=== PATIENT | male | born 1995 | race Caucasian/White ===

== ENCOUNTER 2019-07-04 05:16 | Emergency (ER) | payer OTHER, BC ==
[~2019-07-04] VITALS: Ht 172.7 cm; Wt 104.3 kg
[~2019-07-04 05:16] MED LIST: ASPI81CH; CEPH500 PO; Gummi Bear Mul1 EACH; HYDACE5 PO; Polytrim Eye Dr10 ML LEFTEYE; SULTRIDS PO
[2019-07-05 07:06] LABS: HCV ANTIBODY <0.1 (0.0-0.9)
[2019-07-05 08:06] LABS: HIV SCREEN 4TH GENERATION WRFX Non Reactive (Non Reactive)
== END 2019-07-04 07:19 | disposition home or self-care (01) ==
LOC: ER 05:16
PROVIDERS: Emergency Medicine
DX: S61.230A Puncture wound without foreign body of right index finger without damage to nail, initial encounter (principal); W27.3XXA Contact with needle (sewing), initial encounter; Y99.0 Civilian activity done for income or pay
CPT/HCPCS: 84460; 86317; 86803; 87389

== ENCOUNTER 2022-09-22 13:21 | Emergency (ER) | payer OTHER ==
[~2022-09-22] VITALS: Ht 172.7 cm; Wt 104.3 kg
== END 2022-09-22 15:57 | disposition left against medical advice (07) ==
LOC: ER 13:21
DX: M25.561 Pain in right knee (principal); Z53.21 Procedure and treatment not carried out due to patient leaving prior to being seen by health care provider
CPT/HCPCS: 99281

== ENCOUNTER 2022-09-23 15:00 | Emergency (ER) | payer OTHER ==
[~2022-09-23] VITALS: Ht 172.7 cm; Wt 104.3 kg
== END 2022-09-23 15:52 | disposition home or self-care (01) ==
LOC: ER 15:00
DX: M25.561 Pain in right knee (principal); X50.1XXA Overexertion from prolonged static or awkward postures, initial encounter
CPT/HCPCS: 99283